=== PATIENT | male | born 1965 | race Caucasian/White ===

== ENCOUNTER 2019-01-25 02:24 | Emergency (ER) | payer SELFPAY ==
[~2019-01-25] VITALS: Ht 200.7 cm; Wt 122.5 kg
[~2019-01-25 02:24] MED LIST: AZIT250 PO; DOXY100 PO; HYDACE5 PO; OXYACE5T PO; SULTRIDS PO
== END 2019-01-25 04:40 | disposition home or self-care (01) ==
LOC: ER 02:24
DX: J06.9 Acute upper respiratory infection, unspecified (principal); G47.30 Sleep apnea, unspecified
CPT/HCPCS: 36415; 71045; 93005; 93010; 99283-25